=== PATIENT | female | born 1975 | race Caucasian/White ===

== ENCOUNTER 2018-03-11 20:51 | Emergency (ER) | payer OTHER, SELFPAY ==
[2018-03-11] VITALS (18 sets, daily range): BP systolic 80–146; BP diastolic 46–70; PULSE 86–124; RESP 11–27; TEMP 37.7; O2SAT 89–96
--- NOTE | 2018-03-11 21:10 | W.ED.GENAD ---
Discharge Plan Discharge Details Chief Complaint: RespSymp Primary Care Provider: Gino Montoya ED Provider: Ava Shelby Home Meds and New Rx's Prescriptions: No Action topiramate [Topamax] 25 MG tablet 25 mg PO HS RF: 0 venlafaxine 37.5 mg Capsule,Extended Release 24hr 37.5 mg PO DAILY RF: 0 propranolol 10 mg Tablet 10 mg PO DAILY RF: 0 Medical Decision Making Patient is a 42-year-old female, coming by significant other, with chief complaint of URI and body aches. Reports her symptoms began over the past 48 hours. States they have progressively been getting worse. She did not receive a flu immunization as of yet. Denies sick contacts but has been around children. Denies any GI upset. Denies nausea, vomiting or diarrhea. He is often short of breath or having chest pain. Is endorsing some discomfort more in the right side of her neck and posterior to the ear. Denies any runny nose but is endorsing mild sore throat. On exam, patient was noted to be tachycardic with a pulse of 124. She is febrile with a temp of 37.7. Oxygen is maintained at 96% on room air. She appears fatigued and overall well nontoxic. Lungs are clear on exam. Patient palpable lymphadenopathy over area of discomfort right side of neck and behind right ear. Patient has discomfort wih palpapation of right calf. No edema. Plan to hydrate the patient, treat with Tylenol and ibuprofen, obtain laboratory evaluation. She does have a family history of DVT, right posterior calf tenderness. No recent travel. Patient is not on any estrogen supplementation. Patient has history of fibromyalgia and is an active smoker Laboratory evaluation significant for elevated d-dimer over 1100. Discussed this with the patient. Will obtain chest CT to evaluate for possible pulmonary embolism. Influenza negative. Tachycardia is much improved after treating the patient's fever and hydration. At the end of my shift, care was transitioned to Dr. Gomez with CT for PE pending. HPI General Mode of arrival: ambulatory. Date/Time Provider Initiated Documentation: 03/11/18 21:00. Limitations to Documentation: no limitations. Information obtained by: patient and family. History of Present Illness 42 year old F presents to the emergency department with the chief complaint of cough, body aches, described as moderate, Quality is described as aching (diffuse), Patient started experiencing this day(s) No relieving factors improve symptom(s), No exacerbating factors reported . Patient notes cough and fever/chills; denies chest pain, headaches, nausea/vomiting, rash, shortness of breath and syncope. Patient did receive the following treatments prior to arrival, none Related Data Home Medications Medication Instructions Recorded Confirmed topiramate [Topamax] 25 mg PO HS 07/22/13 03/11/18 propranolol 10 mg PO DAILY 03/11/18 03/11/18 venlafaxine 37.5 mg PO DAILY 03/11/18 03/11/18 Allergies Allergy/AdvReac Type Severity Reaction Status Date / Time amoxicillin [Amoxicillin] AdvReac Intermediate Swelling/Ed Unverified 09/12/12 21:28 florentin Penicillins AdvReac Intermediate Swelling/Ed Unverified 09/12/12 21:29 florentin strawberry [[place]] AdvReac Intermediate Swelling/Ed Unverified 09/12/12 21:28 florentin Sulfa (Sulfonamide AdvReac Intermediate Swelling/Ed Unverified 09/12/12 21:28 Antibiotics) florentin General Stated Complaint: RespSymp ABEL: 3 Review of Systems Constitutional Reports as per HPI, Reports chills, Reports fatigue, Reports fever(s) and Denies headache(s) Eyes Reports as per HPI, Denies eye discharge and Denies irritation ENT Reports as per HPI, Denies dizziness, Denies ear discharge, Denies otalgia, Denies facial pain, Denies headache(s), Denies nasal congestion, Denies nasal discharge, Denies sinus pain, Denies sinus pressure, Reports sore throat and Denies throat swelling Cardiovascular Reports as per HPI, Denies chest pain and Denies dyspnea Respiratory Reports as per HPI, Reports cough, Denies hemoptysis, Denies pain on inspiration, Denies pain with cough and Denies dyspnea Gastrointestinal Reports as per HPI, Denies abdominal pain, Denies change in bowel habits, Denies nausea and Denies vomiting Integumentary/Breasts Reports as per HPI and Denies rash Neurologic Denies dizziness and Denies headache(s) Endocrine Reports fatigue Allergic/Immunologic Denies throat swelling PFSH Social History Smoking/Tobacco Use Status: Current every day Exam Const General: cooperative, healthy appearing, comfortable, no acute distress, well developed and well groomed Nutritional Appearance: average body habitus and well nourished Orientation: alert and awake [facility] Head: normal to inspection, normocephalic and atraumatic Ears: hearing grossly normal bilaterally, external ears normal and TM's normal bilaterally General nose exam: external nose normal and nares normal Face and sinus: normal facial exam, sinuses nontender and face symmetric Mouth: oral mucosae normal, lip normal, tongue normal, oropharynx normal and moist mucous membranes Teeth and gingiva: dentition normal Throat: posterior oropharynx normal, tonsils normal and uvula midline Eyes General: appearance normal, both eyes and all related structures Neck Neck: normal visual inspection, full ROM, no meningeal signs, trachea midline, supple and lymphadenopathy Resp Effort & Inspection: normal respiratory effort, able to speak in complete sentences and no respiratory distress Auscultation: clear to auscultation bilaterally, no rales, no rhonchi and no wheezes Cardio Rate: regular rate Rhythm: regular rhythm Heart Sounds: S1 normal and S2 normal GI Inspection: normal to inspection, no edema and non-distended Palpation: soft, no hepatosplenomegaly, not firm and no guarding Auscultation: normal bowel sounds Skin General skin exam: no rashes or lesions noted Neuro General: alert and awake Cognition: normal cognition Speech: speech normal Gait: normal gait Extrem General: no pedal edema and calf tenderness on the right Psych Appearance: grossly normal and well kempt Mental Status: mental status grossly normal Speech and Movement: speech and movement normal Course Vital Signs Temperature 37.7 C H 03/11/18 20:55 Pulse 124 H 03/11/18 20:55 Respiratory Rate 18 03/11/18 20:55 Blood Pressure 146/70 H 03/11/18 20:55 Pulse Oximetry 96 03/11/18 20:55 Temperature 37.7 C H 03/11/18 20:55 Temperature Source Tympanic 03/11/18 20:55 Pulse 124 H 03/11/18 20:55 Respiratory Rate 18 03/11/18 20:55 Blood Pressure 146/70 H 03/11/18 20:55 Blood Pressure Position Sitting 03/11/18 20:55 Pulse Oximetry 96 03/11/18 20:55 Oxygen Delivery Method Room Air 03/11/18 20:55 Oxygen Flow Rate 0 03/11/18 20:55
--- NOTE | 2018-03-11 21:15 | ED.GENADUL_ITS ---
Discharge Plan Discharge Details Chief Complaint: RespSymp Primary Care Provider: Gino Montoya ED Provider: Ava Shelby Home Meds and New Rx's Prescriptions: No Action topiramate [Topamax] 25 MG tablet 25 mg PO HS RF: 0 venlafaxine 37.5 mg Capsule,Extended Release 24hr 37.5 mg PO DAILY RF: 0 propranolol 10 mg Tablet 10 mg PO DAILY RF: 0 Medical Decision Making Patient is a 42-year-old female, coming by significant other, with chief complaint of URI and body aches. Reports her symptoms began over the past 48 hours. States they have progressively been getting worse. She did not receive a flu immunization as of yet. Denies sick contacts but has been around children. Denies any GI upset. Denies nausea, vomiting or diarrhea. He is often short of breath or having chest pain. Is endorsing some discomfort more in the right side of her neck and posterior to the ear. Denies any runny nose but is endorsing mild sore throat. On exam, patient was noted to be tachycardic with a pulse of 124. She is febrile with a temp of 37.7. Oxygen is maintained at 96% on room air. She appears fatigued and overall well nontoxic. Lungs are clear on exam. Patient palpable lymphadenopathy over area of discomfort right side of neck and behind right ear. Patient has discomfort wih palpapation of right calf. No edema. Plan to hydrate the patient, treat with Tylenol and ibuprofen, obtain laboratory evaluation. She does have a family history of DVT, right posterior calf tenderness. No recent travel. Patient is not on any estrogen supplementation. Patient has history of fibromyalgia and is an active smoker Laboratory evaluation significant for elevated d-dimer over 1100. Discussed this with the patient. Will obtain chest CT to evaluate for possible pulmonary embolism. Influenza negative. Tachycardia is much improved after treating the patient's fever and hydration. At the end of my shift, care was transitioned to Dr. Gomez with CT for PE pending. HPI General Mode of arrival: ambulatory . Date/Time Provider Initiated Documentation: 03/11/18 21:00 . Limitations to Documentation: no limitations . Information obtained by: patient and family . History of Present Illness 42 year old F presents to the emergency department with the chief complaint of cough, body aches, described as moderate, Quality is described as aching (diffuse), Patient started experiencing this day(s) No relieving factors improve symptom(s), No exacerbating factors reported . Patient notes cough and fever/chills; denies chest pain, headaches, nausea/vomiting, rash, shortness of breath and syncope. Patient did receive the following treatments prior to arrival, none Related Data Home Medications Medication Instructions Recorded Confirmed topiramate [Topamax] 25 mg PO HS 07/22/13 03/11/18 propranolol 10 mg PO DAILY 03/11/18 03/11/18 venlafaxine 37.5 mg PO DAILY 03/11/18 03/11/18 Allergies Allergy/AdvReac Type Severity Reaction Status Date / Time amoxicillin [Amoxicillin] AdvReac Intermediate Swelling/Ed Unverified 09/12/12 21:28 florentin Penicillins AdvReac Intermediate Swelling/Ed Unverified 09/12/12 21:29 florentin strawberry [[place]] AdvReac Intermediate Swelling/Ed Unverified 09/12/12 21:28 florentin Sulfa (Sulfonamide AdvReac Intermediate Swelling/Ed Unverified 09/12/12 21:28 Antibiotics) florentin General Stated Complaint: RespSymp ABEL: 3 Review of Systems Constitutional Reports as per HPI, Reports chills, Reports fatigue, Reports fever(s) and Denies headache(s) Eyes Reports as per HPI, Denies eye discharge and Denies irritation ENT Reports as per HPI, Denies dizziness, Denies ear discharge, Denies otalgia, Denies facial pain, Denies headache(s), Denies nasal congestion, Denies nasal discharge, Denies sinus pain, Denies sinus pressure, Reports sore throat and Denies throat swelling Cardiovascular Reports as per HPI, Denies chest pain and Denies dyspnea Respiratory Reports as per HPI, Reports cough, Denies hemoptysis, Denies pain on inspiration, Denies pain with cough and Denies dyspnea Gastrointestinal Reports as per HPI, Denies abdominal pain, Denies change in bowel habits, Denies nausea and Denies vomiting Integumentary/Breasts Reports as per HPI and Denies rash Neurologic Denies dizziness and Denies headache(s) Endocrine Reports fatigue Allergic/Immunologic Denies throat swelling PFSH Social History Smoking/Tobacco Use Status: Current every day Exam Const General: cooperative, healthy appearing, comfortable, no acute distress, well developed and well groomed Nutritional Appearance: average body habitus and well nourished Orientation: alert and awake [facility] Head: normal to inspection, normocephalic and atraumatic Ears: hearing grossly normal bilaterally, external ears normal and TM's normal bilaterally General nose exam: external nose normal and nares normal Face and sinus: normal facial exam, sinuses nontender and face symmetric Mouth: oral mucosae normal, lip normal, tongue normal, oropharynx normal and moist mucous membranes Teeth and gingiva: dentition normal Throat: posterior oropharynx normal, tonsils normal and uvula midline Eyes General: appearance normal, both eyes and all related structures Neck Neck: normal visual inspection, full ROM, no meningeal signs, trachea midline, supple and lymphadenopathy Resp Effort & Inspection: normal respiratory effort, able to speak in complete sentences and no respiratory distress Auscultation: clear to auscultation bilaterally, no rales, no rhonchi and no wheezes Cardio Rate: regular rate Rhythm: regular rhythm Heart Sounds: S1 normal and S2 normal GI Inspection: normal to inspection, no edema and non-distended Palpation: soft, no hepatosplenomegaly, not firm and no guarding Auscultation: normal bowel sounds Skin General skin exam: no rashes or lesions noted Neuro General: alert and awake Cognition: normal cognition Speech: speech normal Gait: normal gait Extrem General: no pedal edema and calf tenderness on the right Psych Appearance: grossly normal and well kempt Mental Status: mental status grossly normal Speech and Movement: speech and movement normal Course Vital Signs Temperature 37.7 C H 03/11/18 20:55 Pulse 124 H 03/11/18 20:55 Respiratory Rate 18 03/11/18 20:55 Blood Pressure 146/70 H 03/11/18 20:55 Pulse Oximetry 96 03/11/18 20:55 Temperature 37.7 C H 03/11/18 20:55 Temperature Source Tympanic 03/11/18 20:55 Pulse 124 H 03/11/18 20:55 Respiratory Rate 18 03/11/18 20:55 Blood Pressure 146/70 H 03/11/18 20:55 Blood Pressure Position Sitting 03/11/18 20:55 Pulse Oximetry 96 03/11/18 20:55 Oxygen Delivery Method Room Air 03/11/18 20:55 Oxygen Flow Rate 0 03/11/18 20:55
[2018-03-11 21:28] LABS: Abs Immature Grans 0.07 k/cumm (0.0-0.09); Absolute Basophil Count 0.06 k/cumm (0.0-0.2); Absolute Eosinophil Count 0.02 k/cumm (0.0-0.7); Absolute Lymphocyte Count 0.76 k/cumm (1.2-3.4); Absolute Monocyte Count 0.96 k/cumm (0.11-0.7); Absolute Neutrophil Count 5.55 k/cumm (1.2-6.7); Basophils % 0.8; Eosinophils % 0.3; HCT 45.9 % (36.0-46.0); HGB 15.6 g/dL (12.0-15.5); Immature Grans % 0.9; Lymphocytes % 10.2; Mean Corpuscular Hemoglobin 32.2 pg (27.0-33.0); Mean Corpuscular Volume 94.6 fL (80-95); Mean Platelet Volume 9.9 fL (8.0-11.0); Monocytes % 12.9; Neutrophils % 74.9; Platelet Count 209 x1000/uL (130-400); RBC 4.85 m/cumm (4.00-5.20); RBC Distribution Width 13.5 % (11.7-14.6); White Blood Cell Count 7.42 k/cumm (4.4-10.8)
[2018-03-11] MEDS: Normal Saline 1,000 ML 1000 ML IV (21:30)
[2018-03-11] MEDS: Acetaminophen 500 MG TAB 1000 MG PO (21:30)
[2018-03-11 21:46] LABS: ALT 68 U/L (12-78); AST 33 U/L (15-37); Albumin 3.6 g/dL (3.4-5.0); Alkaline Phosphatase 87 U/L (46-116); Anion Gap 11.1 mmol/L (3-11); BUN 6 mg/dL (7-18); Bilirubin, Total 0.2 mg/dL (0.2-1.0); CO2 24.9 mmol/L (21.0-32.0); CREATININE 0.92 mg/dL (0.55-1.02); Calcium 8.6 mg/dL (8.5-10.1); Chloride 98 mmol/L (98-107); Glucose 157 mg/dL (70-100); Potassium 3.3 mmol/L (3.5-5.1); Sodium 134 mmol/L (136-145); Total Protein 7.4 g/dL (6.4-8.2)
[2018-03-11] MEDS: Ibuprofen 600 MG TAB PO (21:47)
[2018-03-11 22:01] LABS: D-Dimer 1144 ng/mlFEU (<500)
[2018-03-11] MEDS: Omnipaque 350 MG/ML 100 ML BTL IJ (23:35)
--- NOTE | 2018-03-11 23:35 | DI.CT_ITS ---
SYMPTOMS/DIAGNOSIS: COUGH, TACHYCARDIA, ELEVATED D-DIMER, SOB CT ANGIOGRAPHY, CHEST: CT angiography was performed with multi slice acquisition and multi planar and 3D reconstruction. CT angiography of the chest was performed with a bolus infusion of 98 cc of Omnipaque 350. Images obtained through the upper abdomen show geographic decreased attenuation of hepatic parenchyma consistent with hepatic steatosis. Visualized portions of the spleen and pancreas are unremarkable in appearance. No mediastinal mass or adenopathy seen. Tracheobronchial tree appears intact. No evidence of thoracic aortic aneurysm or dissection. No evidence of pulmonary embolic disease. No pleural effusion seen. There appear to be mild diffuse pulmonary emphysematous changes. The lungs are clear. CONCLUSION: No evidence of pulmonary embolic disease or other acute process.
[2018-03-12] VITALS: PULSE 88; RESP 18; O2SAT 93
[2018-03-12 00:01] VITALS: BP 110/52; PULSE 86; PULSE 87; RESP 17; O2SAT 94
[2018-03-12] MEDS: Benzonatate 100 MG CAP PO (00:04)
--- NOTE | 2018-03-12 00:04 | DI.VRAD_ITS ---
EXAM: CT Angiography Chest With Contrast EXAM DATE/TIME: 03/11/2018 10:08 PM CLINICAL HISTORY: 42 years old, female; Signs and symptoms; Cough and shortness of breath; Patient HX: SOB and cough since yesterday. Elevated d dimer, tachy TECHNIQUE: Axial computed tomographic angiography images of the chest with intravenous contrast using CT angiography protocol. All CT scans at this facility use at least one of these dose optimization techniques: automated exposure control; mA and/or kV adjustment per patient size (includes targeted exams where dose is matched to clinical indication); or iterative reconstruction. Coronal and sagittal reformatted images were created and reviewed. MIP reconstructed images were created and reviewed. CONTRAST: 98 ml of Omnipaque 350 administered intravenously. COMPARISON: No relevant prior studies available. FINDINGS: Pulmonary arteries: The pulmonary arteries are normal in caliber. No evidence of acute pulmonary embolism. Aorta: Normal. No aortic aneurysm. No aortic dissection. Great vessels off aortic arch: The aorta great vessels are normal without evidence of aneurysmal dilatation, dissection or occlusive disease. Lungs: There is heterogeneous attenuation of the pulmonary parenchyma, consistent with air trapping from underlying small airways disease. There is no evidence of focal pulmonary consolidation. No evidence of pulmonary parenchymal inflammatory changes. There is no evidence of pulmonary masses. Pleural space: There is no evidence of pneumothorax. There are no pleural effusions present. Heart: The cardiac structures are normal. Mediastinum: The mediastinal structures are normal. Liver: There is a diffuse decrease in hepatic parenchymal density, consistent with moderate fatty infiltration. Upper abdomen: The upper abdominal viscera are unremarkable. Intraperitoneal space: There are no soft tissue masses or fluid collections. Lymph nodes: Mild aortopulmonary, bilateral hilar and subcarinal adenopathy present. Bones/joints: The spine, sternum, ribs, and pectoral girdles show no evidence of acute abnormality. Soft tissues: Unremarkable. IMPRESSION: 1. There is heterogeneous attenuation of the pulmonary parenchyma, consistent with air trapping from underlying small airways disease. 2. No evidence of acute pulmonary embolism. Dictated and Authenticated by: Cesar Wallace MD. Ordering:PARVIN Escalante MD
[2018-03-12 00:10] VITALS: PULSE 82; RESP 21; O2SAT 91
[2018-03-12 00:16] VITALS: BP 111/47; PULSE 85; PULSE 92; RESP 12; O2SAT 95
[2018-03-12] MEDS: Benzonatate 100 MG CAP 600 MG PO (00:31)
[2018-03-12 00:39] VITALS: BP 111/47; PULSE 85; RESP 12; TEMP 36.6; O2SAT 95
== END 2018-03-12 00:39 | disposition home or self-care (01) ==
PROVIDERS: Emergency Provider Physician Assistant; PCP Nurse Practitioner
DX: R00.0 Tachycardia, unspecified (principal); R50.9 Fever, unspecified; R05 Cough; F17.210 Nicotine dependence, cigarettes, uncomplicated
CPT/HCPCS: 36415; 71275; 80053; 87449; 96360; 96361; 99285; 85025; 85379; 99284; J3490

== ENCOUNTER 2019-06-03 11:07 | Emergency (ER) | payer OTHER, SELFPAY ==
[2019-06-03 11:17] VITALS: BP 153/83; PULSE 96; RESP 16; TEMP 36.9; O2SAT 98
--- NOTE | 2019-06-03 11:23 | W.ED.GENAD ---
Discharge Plan Disposition Patient Disposition: HOME Condition: Stable Discharge Details Chief Complaint: Sorethroat Clinical Impression: Pharyngitis Primary Care Provider: Gino Montoya ED Provider: Marlene Rebollar Home Meds and New Rx's Prescriptions: Continued topiramate [Topamax] 25 MG tablet 25 mg PO HS RF: 0 venlafaxine 37.5 mg Capsule,Extended Release 24hr 37.5 mg PO DAILY RF: 0 propranolol 10 mg Tablet 10 mg PO DAILY RF: 0 atorvastatin 40 mg Tablet 40 mg PO .QHS RF: 0 Premarin 0.3 mg Tablet 0.3 mg PO BID RF: 0 albuterol sulfate [ProAir HFA] 90 mcg/actuation Hfa Aerosol Inhaler 2 puff INHALATION PRNRF: 0 Discharge Instructions Instructions: Pharyngitis (ED) Additional Instructions: Drink plenty of fluids and get plenty of rest. Alternate tylenol and motrin as needed and directed for pain. Follow-up with your primary care doctor in 1 week. Follow-up with your primary care doctor or return to the emergency department with any worsening or new concerning symptoms such as worsening fevers, worsening cough or development of shortness of breath. Stand Alone Forms: Work Release Discharge Data Discharge Date/Time-TO BE ENTERED AT DEPARTURE: 06/03/19 12:17 Discharge Physician: Marlene Rebollar Medical Decision Making 44-year-old female who is a smoker presents with body aches, subjective fevers, left ear pain, sore throat and mild cough that occurs only at night for the past 3 days. Patient currently does not meet criteria for coronavirus as she does not have a significant cough, no complaint of shortness of breath and no history of travel or contact with someone who was travel in the last 14 days. Her blood pressure is mildly elevated. She is afebrile and appears nontoxic. Her posterior pharynx is erythematous but no exudates or edema or peritonsillar mass. Normal TMs bilaterally. Lungs are clear. A rapid flu and strep negative. Discussed with patient this appears viral in nature. She is advised on basic measures to help with viral uri/pharyngitis including handwashing, fluids, rest, Tylenol, Motrin and [id number] symptomatic treatment. Advised to follow-up with her primary care doctor for reevaluation and return to the ER if she develops any worsening fevers, cough or development of shortness of breath. Medical Records Medical records reviewed: Yes I reviewed the patient's medical records. HPI General Mode of arrival: ambulatory. Date/Time Provider Initiated Documentation: 06/03/19 11:14. Limitations to Documentation: no limitations. Information obtained by: patient. HPI Narrative: Patient is a 44-year-old female who presents with a complaint of feeling feverish, body aches, chills, sore throat, left ear pain for the past 3 days. She also admits to a mild cough that occurs mainly at night and is occasionally productive of green sputum. She denies any headache, neck pain, chest pain, shortness of breath or abdominal pain. Patient states she traveled to the [facility] over 6 weeks ago and to [place] 5 weeks ago. She denies any other contact with someone with recent travel. She did receive the flu shot this year. Patient states she was sent here by her employer for evaluation of her symptoms and whether to return to work. She states she has taken ibuprofen and Claritin for her symptoms without relief. Related Data Home Medications Medication Instructions Recorded Confirmed topiramate [Topamax] 25 mg PO HS 07/22/13 06/03/19 propranolol 10 mg PO DAILY 03/11/18 06/03/19 venlafaxine 37.5 mg PO DAILY 03/11/18 06/03/19 Premarin 0.3 mg PO BID 06/03/19 06/03/19 albuterol sulfate [ProAir HFA] 2 puff INHALATION PRN 06/03/19 atorvastatin 40 mg PO .QHS 06/03/19 06/03/19 Allergies Allergy/AdvReac Type Severity Reaction Status Date / Time amoxicillin [Amoxicillin] AdvReac Intermediate Swelling/Ed Unverified 06/03/19 11:21 florentin Penicillins AdvReac Intermediate Swelling/Ed Unverified 06/03/19 11:21 florentin strawberry [[place]] AdvReac Intermediate Swelling/Ed Unverified 06/03/19 11:21 florentin Sulfa (Sulfonamide AdvReac Intermediate Swelling/Ed Unverified 06/03/19 11:21 Antibiotics) florentin General Stated Complaint: Sorethroat ABEL: 4 Review of Systems All systems reviewed & are unremarkable except as noted in HPI and below Constitutional Constitutional: Reports as per HPI, Denies chills and Reports fever(s) Eyes Eyes: Denies blurry vision ENT Ears, Nose, Mouth, and Throat: Denies dizziness, Reports sore throat and Denies throat swelling Cardiovascular Cardiovascular: Denies chest pain and Denies dyspnea Respiratory Respiratory: Reports cough and Denies dyspnea Gastrointestinal Gastrointestinal: Denies abdominal pain, Denies diarrhea and Denies vomiting Genitourinary Genitourinary: Denies hematuria and Denies dysuria Musculoskeletal Musculoskeletal: Denies back pain and Denies numbness Integumentary/Breasts Skin/Breast: Denies lesions and Denies rash Neurologic Neurologic: Denies dizziness, Denies localized weakness and Denies numbness Allergic/Immunologic Allergic/Immunologic: Denies throat swelling [facility] Medical History Fibromyalgia (Acute) Surgical History History of dilation and curettage (Acute) History of endometrial ablation (Acute) Social History Smoking/Tobacco Use Status: Current every day Tobacco Type: cigarettes Drug use: Occasionally Substance use type: marijuana Do you feel safe in your relationship?: Yes Exam Const General: cooperative, healthy appearing and no acute distress HENMT Head: normal to inspection Ears: hearing grossly normal bilaterally, external ears normal and TM's normal bilaterally General nose exam: external nose normal Mouth: oral mucosae normal Throat: uvula midline, no peritonsillar masses and posterior oropharynx abnormal erythema (minimal ); no edema and no exudates Eyes General: appearance normal, both eyes and all related structures Neck Neck: normal visual inspection, no lymphadenopathy, no meningeal signs, trachea midline, supple, no anterior neck swelling and No submandibular swelling Resp Effort & Inspection: normal respiratory effort and able to speak in complete sentences Auscultation: clear to auscultation bilaterally, no rales, no rhonchi and no wheezes Cardio Rate: regular rate Rhythm: regular rhythm Skin General skin exam: no rashes or lesions noted Neuro General: patient alert, patient awake and patient oriented x3 Motor: muscle tone normal throughout Extrem General: normal to inspection and full ROM Psych Appearance: grossly normal Affect: normal affect Course Vital Signs Vital signs: Vital Signs Temperature 98.4 F 06/03/19 11:17 Pulse 96 H 06/03/19 11:17 Respiratory Rate 16 06/03/19 11:17 Blood Pressure 153/83 H 06/03/19 11:17 Pulse Oximetry 98 06/03/19 11:17 Temperature 98.4 F 06/03/19 11:17 Temperature Source Skin 06/03/19 11:17 Pulse 96 H 06/03/19 11:17 Respiratory Rate 16 06/03/19 11:17 Respiratory Effort Non-Labored 06/03/19 11:17 Blood Pressure 153/83 H 06/03/19 11:17 Blood Pressure Position Sitting 06/03/19 11:17 Pulse Oximetry 98 06/03/19 11:17 Oxygen Delivery Method Room Air 06/03/19 11:17 Oxygen Flow Rate 0 06/03/19 11:17 Pain Level 7 06/03/19 11:17 Lab/Test Results Lab/Test Results: 06/03/19 11:18 Nasopharynx Influenza Types A,B Antigen - Pending
== END 2019-06-03 12:17 | disposition home or self-care (01) ==
PROVIDERS: Emergency Provider Physician Assistant; PCP Nurse Practitioner
DX: J02.9 Acute pharyngitis, unspecified (principal); H92.02 Otalgia, left ear; M79.10 Myalgia, unspecified site; F17.210 Nicotine dependence, cigarettes, uncomplicated
CPT/HCPCS: 87449; 87880; 99282; 87081; 99283